=== PATIENT | female | born 1955 | race Caucasian/White ===

== ENCOUNTER 2025-08-13 12:11 | Emergency (ER) | payer OTHER ==
[2025-08-13] MEDS ORDERED: Tetracaine 0.5% PF 4 ML BOT ONE (12:24)
[2025-08-13] MEDS ORDERED: Fluorescein Opthalmic Strip ONE (12:24)
== END 2025-08-13 13:02 | disposition home or self-care (01) ==
LOC: MADERS 12:11
DX: S05.02XA Injury of conjunctiva and corneal abrasion without foreign body, left eye, initial encounter (principal); X58.XXXA Exposure to other specified factors, initial encounter
CPT/HCPCS: 99283